=== PATIENT | female | born 1995 | race Caucasian/White ===

== ENCOUNTER 2021-03-13 19:49 | Emergency (ER) | payer SELFPAY ==
[~2021-03-13] VITALS: Ht 167.6 cm; Wt 55.0 kg
[2021-03-13 19:56] VITALS: BP 113/62
[2021-03-13] MEDS ORDERED: CEFTRIAXONE SODIUM 1 G/VIAL IM ONE (21:00)
[2021-03-13] MEDS ORDERED: LIDOCAINE HCL 1% 20ML VIAL (Pyxis) INJ INFIL ONE (21:00)
[2021-03-13] MEDS ORDERED: CIPR-263 PO (21:01)
[2021-03-13 21:04] LABS: CLARITY URINE CLOUDY (CLEAR); COLOR URINE DARK YELLOW (YELLOW); KETONES URINE 4+ (NEGATIVE); LEUKOCYTE ESTERASE URINE 2+ (NEGATIVE); NITRITE URINE NEGATIVE (NEGATIVE); OCCULT BLOOD URINE 1+ (NEGATIVE); PH URINE 5.5 (4.5-8.0); PROTEIN URINE 1+ (NEGATIVE); SPECIFIC GRAVITY URINE 1.029 (1.005-1.030); UROBILINOGEN URINE 0.2 E.U./dL (0.2-1.0)
[2021-03-13] MEDS ORDERED: ACETAMINOPHEN 325MG TABLET PO ONE (21:15)
== END 2021-03-13 22:45 | disposition home or self-care (01) ==
LOC: ER 20:06
DX: N10 Acute pyelonephritis (principal); N28.1 Cyst of kidney, acquired; Z98.890 Other specified postprocedural states
CPT/HCPCS: 81003; 81025; 87086; 96372; 99283; J0696; J3490

== ENCOUNTER 2024-10-30 11:07 | Emergency (ER) | payer SELFPAY ==
[~2024-10-30] VITALS: Ht 167.6 cm; Wt 59.0 kg
[~2024-10-30 11:07] MED LIST: CIPR-263 PO
[2024-10-30 11:16] VITALS: O2SAT 100
[2024-10-30] MEDS ORDERED: HYDR50TA55 MT (11:49)
[2024-10-30] MEDS ORDERED: HYDR453.4 TP (12:11)
[2024-10-30 12:31] VITALS: BP 113/61; PULSE 68; RESP 18; TEMP 36.9; O2SAT 100
== END 2024-10-30 12:32 | disposition home or self-care (01) ==
LOC: ER 11:07
DX: R21 Rash and other nonspecific skin eruption (principal); Z87.19 Personal history of other diseases of the digestive system; Z79.899 Other long term (current) drug therapy
CPT/HCPCS: 99283